=== PATIENT | male | born 2000 ===

== ENCOUNTER 2022-05-07 20:29 | Emergency (ER) | payer SELFPAY ==
[2022-05-07 20:38] VITALS: BP 122/80
== END 2022-05-08 01:31 | disposition left against medical advice (07) ==
LOC: ED 20:29
DX: Z13.30 Encounter for screening examination for mental health and behavioral disorders, unspecified (principal); Z53.21 Procedure and treatment not carried out due to patient leaving prior to being seen by health care provider